=== PATIENT | male | born 1990 | race African-American/Black ===

== ENCOUNTER 2017-10-24 16:31 | Inpatient (IN) | payer OTHER ==
[~2017-10-24] VITALS: Ht 180.3 cm; Wt 99.9 kg
[~2017-10-24 16:31] MED LIST: CEPH500C PO; SULF800T23 PO
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
[2017-10-24 17:00] LABS: BASO % 0.2 %; BASO ABS # 0.02 K/uL (0-0.2); EOS % 2.6 %; EOS ABS # 0.28 K/uL (0-0.5); HEMOGLOBIN 15.1 g/dL (14.0-18.0); IG# 0.03 K/uL (0.00-0.02); LYMPH % 18.5 %; LYMPH ABS # 2.01 K/uL (1.2-3.4); MEAN CELL VOLUME 91.3 fL (80-100); MEAN CORPUSCULAR HEMOGLOBIN 32.8 pg (25-34); MEAN PLATELET VOLUME 9.4 fL (7.4-10.4); NEUT % 67.4 %; NEUT ABS # 7.32 K/uL (1.4-6.5); PLATELET COUNT 196 K/uL (130-400); RED CELL DISTRIBUTION WIDTH CV 13.2 % (11.5-14.5); RED CELL DISTRIBUTION WIDTH SD 44.2 fL (36.4-46.3); WHITE BLOOD COUNT 10.86 K/uL (4.8-10.8)
[2017-10-24] MEDS ORDERED: AMPICILLIN/SULBACTAM SOD INJ 3,000 MG in SODIUM CHLORIDE 0.9% 100ML 100 ML IV ONE (17:00)
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
[2017-10-24 17:16] LABS: CALCIUM 8.2 mg/dl (8.5-10.1); CREATININE 1.04 mg/dl (0.60-1.40); POTASSIUM 3.6 mmol/L (3.5-5.1)
[2017-10-24 17:30] VITALS: O2SAT 96; Ht 180.3 cm; Wt 99.9 kg
[2017-10-24] MEDS ORDERED: ONDANSETRON INJ 2 MG/ML 2 ML VIAL IV PRN (17:45)
[2017-10-24] MEDS ORDERED: HYDR1CAP85 PO (18:15)
[2017-10-24] MEDS ORDERED: PARO10TA3 PO (18:15)
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
[2017-10-24 19:05] VITALS: BP 148/80; PULSE 61; TEMP 37.2; O2SAT 98
[2017-10-24] MEDS: LACTATED RINGER'S 1000ML 1,000 ML IV SCH (19:42)
[2017-10-24 19:44] LABS: INR 1.1 (0.9-1.1)
[2017-10-24] MEDS: ENOXAPARIN 30 MG/0.3 ML SYR SQ SCH (22:01)
[2017-10-24] MEDS: KETOROLAC TROMETHAMINE 30 MG/ML VIAL IV PRN (22:02)
[2017-10-24 23:18] VITALS: BP 121/69; PULSE 59; TEMP 37; O2SAT 99
[2017-10-25] MEDS: AMPICILLIN/SULBACTAM SOD INJ 1,500 MG in SODIUM CHLORIDE 0.9% 100ML 100 ML IV SCH ×4 (00:33→17:50)
[2017-10-25] MEDS ORDERED: MoRPHine SULFATE 4 MG/ML 1 ML CARP\\VIAL IV STA (00:38)
[2017-10-25 06:26] LABS: BASO % 0.2 %; BASO ABS # 0.02 K/uL (0-0.2); EOS % 3.8 %; EOS ABS # 0.32 K/uL (0-0.5); HEMATOCRIT 40.8 % (42-52); IG# 0.03 K/uL (0.00-0.02); LYMPH % 24.4 %; LYMPH ABS # 2.04 K/uL (1.2-3.4); MEAN CELL VOLUME 91.7 fL (80-100); MEAN CORPUSCULAR HEMOGLOBIN 31.5 pg (25-34); MEAN CORPUSCULAR HGB CONC 34.3 g/dl (32-36); MEAN PLATELET VOLUME 9.5 fL (7.4-10.4); MONO % 14.2 %; MONO ABS # 1.19 K/uL (0.11-0.59); NEUT ABS # 4.77 K/uL (1.4-6.5); PLATELET COUNT 199 K/uL (130-400); RED CELL DISTRIBUTION WIDTH CV 13.3 % (11.5-14.5); RED CELL DISTRIBUTION WIDTH SD 44.2 fL (36.4-46.3); WHITE BLOOD COUNT 8.37 K/uL (4.8-10.8)
[2017-10-25 07:06] LABS: BLOOD UREA NITROGEN 16 mg/dl (7-18); CALCIUM 8.1 mg/dl (8.5-10.1); CARBON DIOXIDE 27 mmol/L (21-32); CREATININE 1.12 mg/dl (0.60-1.40); GLUCOSE 86 mg/dl (70-99); SODIUM 139 mmol/L (136-145)
[2017-10-25 07:20] VITALS: BP 131/74; PULSE 62; TEMP 36.8; O2SAT 98
[2017-10-25] MEDS: KETOROLAC TROMETHAMINE 30 MG/ML VIAL IV PRN ×2 (08:12→19:19)
[2017-10-25] MEDS: LACTATED RINGER'S 1000ML 1,000 ML IV SCH (08:16)
[2017-10-25] MEDS: ENOXAPARIN 30 MG/0.3 ML SYR SQ SCH ×2 (11:02→20:46)
--- NOTE | 2017-10-25 12:15 | CONSULTATION REPORT ---
DATE OF CONSULTATION: 10/25/2017 HISTORY OF PRESENT ILLNESS: The patient presents to the hospital, admitted yesterday with a laceration over his MCP joint of his third finger of his right hand. He has got two 1 cm lacerations, appeared to be from striking some type of object. Has some just diffuse generalized puffiness and swelling in the dorsum of his hand. No evidence of fracture is noted. His extensor mechanism and extensor tendon is intact. He is neurovascularly and neurologically intact. He has no signs of volar swelling or volar extension of any type of cellulitis. He has been on intravenous antibiotics and appears to be getting better from yesterday, but at this point, the plan is for continued 24 hours of IV antibiotics pending his response over the next 24 hours, possible MRI scan at this point though he is not in need of anything surgical. We will continue with IV antibiotics. Will follow with you.
[2017-10-25 15:22] VITALS: BP 149/73; PULSE 62; TEMP 37; O2SAT 100
--- NOTE | 2017-10-25 23:39 | Progress Note ---
Subjective Date of Service: Oct 25, 2017. Subjective Pt evaluation today including: conversation w/ patient, physical exam Graeme is a 27 yo male from group home. He states he hit his hand on a screw while lifting weights. He reports his hand continues to be swollen and he has pain today. Patient denies any fever chills, nausea, vomiting. Problem List Medical Problems: (1) Cellulitis Status: Acute (2) Cellulitis and abscess of hand Status: Acute (3) Failure of outpatient treatment Status: Acute Review of Systems Constitutional: No fever Eyes: No worsening of vision ENT: No hearing loss Respiratory: No cough Cardiac: No chest pain Musculoskeletal: + joint pain, + swelling (right hand) Neurologic: No memory loss Psychiatric: No depression symptoms Heme: No abnormal bleeding/bruising Endo: No fatigue Skin: No rash Objective Vital Signs Date Time Temp Pulse Resp B/P (MAP) Pulse Ox O2 Delivery O2 Flow Rate FiO2 10/25/17 16:00 Room Air 10/25/17 15:22 37.0 62 16 149/73 (98) 100 10/25/17 07:20 36.8 62 16 131/74 (93) 98 Physical Exam Comments: General: patient resting comfortably in bed, speech delayed with stutter Skin: abrasion on right hand on third MCP joint with small amount of serosanguinous drainage, granulation tissue present, surrounding redness, warmth and edema with tenderness to palpation of dorsum of hand to wrist. No bullae, no crepitus, no streaking. Sensation intact to light touch. Pulses 2+ . No swelling of wrist. HEENT: NC/AT, PERRL, EOMI, anicteric sclera, conjunctiva without injection, nares patent, moist mucus membranes, no oropharyngeal lesions, neck supple, trachea midline, no thyromegaly, no LAD Heart: +S1/S2, regular, no m/r/g Lungs: equal air entry bilaterally, no rales/rhonchi/wheezes Abdomen: soft, NT/ND, no masses/organomegaly/ascites Extremities: warm, well perfused, no clubbing/cyanosis or edema, 2+ palpable pulses in UE/LE bilaterally Neuro: grossly no deficits Laboratory Results Last 24 Hours Test 10/25/17 06:07 10/25/17 14:26 White Blood Count 8.37 K/uL Red Blood Count 4.45 M/uL Hemoglobin 14.0 g/dL Hematocrit 40.8 % Mean Corpuscular Volume 91.7 fL Mean Corpuscular Hemoglobin 31.5 pg Mean Corpuscular Hemoglobin Concent 34.3 g/dl Platelet Count 199 K/uL Mean Platelet Volume 9.5 fL Neutrophils (%) (Auto) 57.0 % Lymphocytes (%) (Auto) 24.4 % Monocytes (%) (Auto) 14.2 % Eosinophils (%) (Auto) 3.8 % Basophils (%) (Auto) 0.2 % Neutrophils # (Auto) 4.77 K/uL Lymphocytes # (Auto) 2.04 K/uL Monocytes # (Auto) 1.19 K/uL Eosinophils # (Auto) 0.32 K/uL Basophils # (Auto) 0.02 K/uL RDW Standard Deviation 44.2 fL RDW Coefficient of Variation 13.3 % Immature Granulocyte % (Auto) 0.4 % Immature Granulocyte # (Auto) 0.03 K/uL Sodium Level 139 mmol/L Potassium Level 4.0 mmol/L Chloride Level 108 mmol/L Carbon Dioxide Level 27 mmol/L Anion Gap 4.0 mmol/L Blood Urea Nitrogen 16 mg/dl Creatinine 1.12 mg/dl Est Creatinine Clear Calc Drug Dose 119.3 ml/min Estimated GFR () 103.8 Estimated GFR (Non- 89.5 BUN/Creatinine Ratio 14.4 Random Glucose 86 mg/dl Calcium Level 8.1 mg/dl Troponin I < 0.015 ng/ml < 0.015 ng/ml Assessment and Plan 26yo male with no significant past medical or surgical history with abrasion to dorsum of right hand 3 days ago on a weight bench. Patient with progressive pain/redness/edema. Failed outpatient therapy. 1. Cellulitis right hand on 3rd mcp. - progressive pain, swelling, redness over the last three days. Patient received only one day of outpatient oral therapy, cannot definitively be called outpatient treatment failure. However, now with reported fever, WBC from 9.7 to 10.86 over the last day. Patient is afebrile at present, nontoxic in appearance. He is in considerable pain from the hand and has limited ROM. X-ray with no evidence of osseous injury -Admitted to medical floor -Mild improvement today. -Unasyn 1.5gm IV q 6 hours -Tylenol PRN pain -Toradol 30mg IV q 6 hours PRN -Consult with Dr. Smart- Orthopedic Surgery. Appreciate assistance with this case. -If no improvement BY TOMORROW, will obtain an MRI to look for septic arthritis 2. F/E/N - LR at 80mL/hr x 2 liters, monitor electrolytes and replete as needed , regular diet as tolerated 3. Ppx - Lovenox for DVT prophylaxis 4. Code -Full
[2017-10-25 23:55] VITALS: BP 134/76; PULSE 56; TEMP 36.9; O2SAT 99
[2017-10-26] MEDS: AMPICILLIN/SULBACTAM SOD INJ 1,500 MG in SODIUM CHLORIDE 0.9% 100ML 100 ML IV SCH ×4 (00:47→17:27)
[2017-10-26] MEDS: KETOROLAC TROMETHAMINE 30 MG/ML VIAL IV PRN ×3 (01:27→21:44)
[2017-10-26] MEDS: ACETAMINOPHEN 325 MG TAB PO PRN (04:03)
[2017-10-26 06:38] LABS: CALCIUM 7.8 mg/dl (8.5-10.1); CREATININE 1.05 mg/dl (0.60-1.40); POTASSIUM 3.8 mmol/L (3.5-5.1)
[2017-10-26 07:16] VITALS: BP 127/76; PULSE 52; TEMP 36.6; O2SAT 99
--- NOTE | 2017-10-26 08:40 | Orthopedic Progress Note ---
Orthopedic Progress Note Date of Service Oct 26, 2017. Subjective Reports: feeling well Additional Notes: Pt had an gurdeep wrap applied to the hand which he states has helped his discomfort. No new complaints. Feels that the hand in general is better but still has moderate pain in the 3rd MCPJ. Objective N/V intact Hand swelling is down and looking better. Still with swelling over the 3rd MCPJ with moderate pain with palpation and ROM. Most of the pain is in the joint but does translate proximally. Date Time Temp Pulse Resp B/P (MAP) Pulse Ox O2 Delivery O2 Flow Rate FiO2 10/26/17 07:16 36.6 52 16 127/76 (93) 99 10/26/17 00:30 Room Air 10/25/17 23:55 36.9 56 18 134/76 (95) 99 Room Air 10/25/17 16:00 Room Air 10/25/17 15:22 37.0 62 16 149/73 (98) 100 Assessment & Plan Assessment: Cellulitis Right hand s/p right hand injury near the 3rd MCP joint. Plan: Looks better today but still with moderate pain in the joint. MRI ordered to r/o septic joint. Continue IV antibx
[2017-10-26] MEDS: ENOXAPARIN 30 MG/0.3 ML SYR SQ SCH ×2 (09:28→20:03)
[2017-10-26 15:18] VITALS: BP 124/68; PULSE 58; TEMP 36.3; O2SAT 98
[2017-10-26] MEDS ORDERED: GADAVIST IV PRN (21:30)
--- NOTE | 2017-10-26 21:49 | DIAGNOSTIC IMAGING REPORT ---
MRI OF THE RIGHT HAND COMBO CLINICAL HISTORY: Soft tissue infection. Assess the third metacarpophalangeal joint. COMPARISON STUDY: Radiographs of the right hand dated 10/24/2017. TECHNIQUE: MRI of the right hand is performed utilizing various T1 and T2-weighted sequences in the axial, sagittal, and coronal planes. Contrast-enhanced sequences are acquired following the IV administration of 10 cc of Gadavist. FINDINGS: There is minimal marrow edema seen within the third metacarpal head and the base of the first proximal phalanx. There is no corresponding drop in signal on the T1-weighted sequences and this suggests mild osteitis. There is no clear MRI evidence of osteomyelitis. There is a joint effusion at the third metacarpophalangeal joint with mild synovial thickening and enhancement. This suggests septic arthritis. There is soft tissue edema identified around the third metacarpophalangeal joint, greatest dorsally. A tiny cutaneous defect is seen on axial image #22 and likely represents a wound. No organized fluid collection is seen to indicate abscess. No foreign body is clearly seen. The remaining skeletal structures demonstrate normal marrow signal intensity. The visualized flexor and extensor tendons appear intact. IMPRESSION: 1. There is evidence of a wound in the dorsal soft tissues at the level of the third metacarpophalangeal joint with surrounding cellulitis. No organized fluid collection is seen to indicate abscess. 2. Findings are most consistent with septic arthritis involving the third metacarpophalangeal joint. 3. There is evidence of mild osteitis involving the third metacarpal head and the base of the third proximal phalanx. There is no clear evidence of osteomyelitis at this time. Dictated: 10/26/2017 9:26 PM Transcribed: 10/26/2017 9:48 PM Eric Electronically signed by: Paulie Morrison M.D. 10/26/2017 9:49 PM Dictated Date/Time: 10/26/2017 9:26 PM
[2017-10-26 23:33] VITALS: BP 148/76; PULSE 77; TEMP 37.4; O2SAT 94
--- NOTE | 2017-10-26 23:42 | Progress Note ---
Subjective Date of Service: Oct 26, 2017. Subjective Pt evaluation today including: conversation w/ patient, physical exam Patient reports improvement today. He states he has less pain and less swelling. Patient denies any fever, chills. Problem List Medical Problems: (1) Cellulitis Status: Acute (2) Cellulitis and abscess of hand Status: Acute (3) Failure of outpatient treatment Status: Acute Review of Systems Constitutional: No fever, No chills Eyes: No worsening of vision Respiratory: No cough Cardiac: No chest pain Abdomen: No pain Musculoskeletal: + joint pain (right hand) Neurologic: No memory loss Psychiatric: No depression symptoms Heme: No abnormal bleeding/bruising Endo: No fatigue Skin: No rash All Other Systems: Reviewed and Negative Objective Vital Signs Date Time Temp Pulse Resp B/P (MAP) Pulse Ox O2 Delivery O2 Flow Rate FiO2 10/26/17 23:33 37.4 77 18 148/76 (100) 94 Room Air 10/26/17 16:00 Room Air 10/26/17 15:18 36.3 58 18 124/68 (86) 98 Room Air 10/26/17 08:00 Room Air 10/26/17 07:16 36.6 52 16 127/76 (93) 99 10/26/17 00:30 Room Air 10/25/17 23:55 36.9 56 18 134/76 (95) 99 Room Air Physical Exam Comments: General: patient resting comfortably in bed, speech delayed with stutter Skin: abrasion on right hand on third MCP joint with small amount of serosanguinous drainage, granulation tissue present, decreased redness, warmth and edema with decreased tenderness to palpation of dorsum of hand to wrist. No bullae, no crepitus, no streaking. Sensation intact to light touch. Pulses 2+. No swelling of wrist. HEENT: NC/AT, PERRL, EOMI, anicteric sclera, conjunctiva without injection, nares patent, moist mucus membranes, no oropharyngeal lesions, neck supple, trachea midline, no thyromegaly, no LAD Heart: +S1/S2, regular, no m/r/g Lungs: equal air entry bilaterally, no rales/rhonchi/wheezes Abdomen: soft, NT/ND, no masses/organomegaly/ascites Extremities: warm, well perfused, no clubbing/cyanosis or edema, 2+ palpable pulses in UE/LE bilaterally Neuro: grossly no deficits Laboratory Results Last 24 Hours Test 10/26/17 05:49 Sodium Level 139 mmol/L Potassium Level 3.8 mmol/L Chloride Level 108 mmol/L Carbon Dioxide Level 27 mmol/L Anion Gap 4.0 mmol/L Blood Urea Nitrogen 14 mg/dl Creatinine 1.05 mg/dl Est Creatinine Clear Calc Drug Dose 126.1 ml/min Estimated GFR () 111.4 Estimated GFR (Non- 96.1 BUN/Creatinine Ratio 12.9 Random Glucose 90 mg/dl Calcium Level 7.8 mg/dl Assessment and Plan 26yo male with no significant past medical or surgical history with abrasion to dorsum of right hand 3 days ago on a weight bench. Patient with progressive pain/redness/edema. Failed outpatient therapy. 1. Cellulitis right hand on 3rd mcp. - progressive pain, swelling, redness over the last three days. Patient received only one day of outpatient oral therapy, cannot definitively be called outpatient treatment failure. Patient is afebrile throughout stay, nontoxic in appearance. Pain has improved. X-ray with no evidence of osseous injury -Unasyn 1.5gm IV q 6 hours -Tylenol PRN pain -Toradol 30mg IV q 6 hours PRN -Consult with Dr. Smart- Orthopedic Surgery. Appreciate assistance with this case. -Awaiting MRI of hand results. will monitor. If positive, will need 2. F/E/N - LR at 80mL/hr x 2 liters, monitor electrolytes and replete as needed , regular diet as tolerated 3. Ppx - Lovenox for DVT prophylaxis 4. Code -Full
[2017-10-27] VITALS (8 sets, daily range): BP systolic 93–145; BP diastolic 51–80; PULSE 59–70; TEMP 36.3–37.3; O2SAT 92–100
[2017-10-27] MEDS: ACETAMINOPHEN 325 MG TAB PO PRN ×2 (00:06→05:47)
[2017-10-27] MEDS: AMPICILLIN/SULBACTAM SOD INJ 1,500 MG in SODIUM CHLORIDE 0.9% 100ML 100 ML IV SCH ×4 (00:06→19:36)
[2017-10-27] MEDS: KETOROLAC TROMETHAMINE 30 MG/ML VIAL IV PRN ×2 (03:15→10:05)
[2017-10-27 06:25] LABS: HEMATOCRIT 37.3 % (42-52); HEMOGLOBIN 12.8 g/dL (14.0-18.0); MEAN CELL VOLUME 91.6 fL (80-100); MEAN CORPUSCULAR HEMOGLOBIN 31.4 pg (25-34); MEAN CORPUSCULAR HGB CONC 34.3 g/dl (32-36); PLATELET COUNT 190 K/uL (130-400); RED CELL DISTRIBUTION WIDTH SD 43.8 fL (36.4-46.3); WHITE BLOOD COUNT 6.56 K/uL (4.8-10.8)
[2017-10-27 06:50] LABS: CALCIUM 8.2 mg/dl (8.5-10.1); CREATININE 0.99 mg/dl (0.60-1.40); POTASSIUM 3.8 mmol/L (3.5-5.1)
--- NOTE | 2017-10-27 08:25 | Progress Note ---
Subjective Date of Service: Oct 27, 2017. Subjective Patient seen prior to surgery. Patient reports no new symptoms. Patient reports hand swelling has decreased. Problem List Medical Problems: (1) Cellulitis Status: Acute (2) Cellulitis and abscess of hand Status: Acute (3) Failure of outpatient treatment Status: Acute Review of Systems Constitutional: No fever, No chills Eyes: No worsening of vision Respiratory: No cough Cardiac: No chest pain Abdomen: No pain Musculoskeletal: + joint pain (right hand) Neurologic: No memory loss Psychiatric: No depression symptoms Heme: No abnormal bleeding/bruising Endo: No fatigue Skin: No rash All Other Systems: Reviewed and Negative Objective Vital Signs Date Time Temp Pulse Resp B/P (MAP) Pulse Ox O2 Delivery O2 Flow Rate FiO2 10/27/17 07:10 36.8 61 18 93/51 (65) 100 Room Air 10/27/17 00:30 Room Air 10/26/17 23:33 37.4 77 18 148/76 (100) 94 Room Air 10/26/17 16:00 Room Air 10/26/17 15:18 36.3 58 18 124/68 (86) 98 Room Air Physical Exam General Appearance: WD/WN, no apparent distress Eyes: normal inspection ENT: normal ENT inspection Neck: supple, no adenopathy Respiratory/Chest: chest non-tender, lungs clear, normal breath sounds, no respiratory distress Cardiovascular: regular rate, rhythm, no edema Abdomen: normal bowel sounds, non tender, soft Extremities: normal range of motion Neurologic/Psychiatric: alert, oriented x 3 Skin: + pertinent finding (abrasion on right hand on third MCP joint with small amount of serosanguinous drainage, granulation tissue present, decreased redness, warmth and edema with decreased tenderness to palpation of dorsum of hand to wrist. No bullae, no crepitus, no streaking. Sensation intact to light touch. Pulses 2+. No swelling of wrist.) Lymphatic: no adenopathy Laboratory Results Last 24 Hours Test 10/27/17 06:09 White Blood Count 6.56 K/uL Red Blood Count 4.07 M/uL Hemoglobin 12.8 g/dL Hematocrit 37.3 % Mean Corpuscular Volume 91.6 fL Mean Corpuscular Hemoglobin 31.4 pg Mean Corpuscular Hemoglobin Concent 34.3 g/dl RDW Standard Deviation 43.8 fL RDW Coefficient of Variation 13.0 % Platelet Count 190 K/uL Mean Platelet Volume 9.0 fL Sodium Level 140 mmol/L Potassium Level 3.8 mmol/L Chloride Level 109 mmol/L Carbon Dioxide Level 25 mmol/L Anion Gap 7.0 mmol/L Blood Urea Nitrogen 15 mg/dl Creatinine 0.99 mg/dl Est Creatinine Clear Calc Drug Dose 133.7 ml/min Estimated GFR () 119.6 Estimated GFR (Non- 103.2 BUN/Creatinine Ratio 15.1 Random Glucose 87 mg/dl Calcium Level 8.2 mg/dl Assessment and Plan 26yo male with no significant past medical or surgical history with abrasion to dorsum of right hand 3 days ago on a weight bench. Patient with progressive pain/redness/edema. Failed outpatient therapy. 1. Cellulitis right hand on 3rd mcp. - progressive pain, swelling, redness over the last three days. Patient received only one day of outpatient oral therapy, cannot definitively be called outpatient treatment failure. Patient is afebrile throughout stay, nontoxic in appearance. Pain has improved. X-ray with no evidence of osseous injury -Unasyn 1.5gm IV q 6 hours -Added flagyl for possible human bite infection. -Tylenol PRN pain -Toradol 30mg IV q 6 hours PRN -Consult with Dr. Smart- Orthopedic Surgery. Appreciate assistance with this case. -MRI was positive for septic arthritis. Patient will have surgery. Added Flagyl for possible human bite. 2. F/E/N - LR at 80mL/hr x 2 liters, monitor electrolytes and replete as needed , regular diet as tolerated 3. Ppx - Lovenox for DVT prophylaxis 4. Code -Full
[2017-10-27] MEDS: ENOXAPARIN 30 MG/0.3 ML SYR SQ SCH (08:37)
[2017-10-27] MEDS: METRONIDAZOLE / NSS 500 MG in PREMIXED NSS 100 ML IV SCH ×3 (09:13→20:14)
--- NOTE | 2017-10-27 11:55 | History & Physical Bridge Note ---
H&P Re-Evaluation Bridge Note: I have examined the patient, reviewed the History & Physical and in the interval since the performance of the History & Physical I have noted the following changes of clinical significance: No changes noted
[2017-10-27] MEDS ORDERED: BACITRACIN 50000 UNIT VIAL ONE (15:14)
[2017-10-27] MEDS ORDERED: PROPOFOL IV EMULSION 10 MG/ML 20 ML VIAL ONE (15:24)
[2017-10-27] MEDS ORDERED: MIDAZOLAM HCL 1 MG/ML 2ML VIAL ONE (15:24)
[2017-10-27] MEDS ORDERED: ONDANSETRON INJ 2 MG/ML 2 ML VIAL ONE (15:24)
[2017-10-27] MEDS ORDERED: LIDOCAINE HCL 2% 2 ML VIAL (20MG/ML) ONE (15:24)
[2017-10-27] MEDS ORDERED: DEXAMETHASONE SOD INJ 4 MG/ML VIAL ONE (15:24)
[2017-10-27] MEDS ORDERED: FENTANYL CITRATE INJ 50 MCG/1 ML 2 ML VIAL ONE ×3 (15:25→17:27)
[2017-10-27] MEDS ORDERED: OXYCODONE HCL IR 5 MG TAB (IMMEDIATE RELEASE) PO PRN (18:00)
[2017-10-27] MEDS ORDERED: MoRPHine SULFATE 4 MG/ML 1 ML CARP\\VIAL IV PRN (18:00)
--- NOTE | 2017-10-27 18:17 | [facility] Post Operative Brief Note ---
Immediate Operative Summary Operative Date Oct 27, 2017. Pre-Operative Diagnosis tenosynovitis, 3rd extensor, right hand septic arthritis, 3rd MCP, right hand synovitis, 3rd MCP, right hand Post-Operative Diagnosis tenosynovitis, 3rd extensor, right hand septic arthritis, 34rd MCP, right hand synovitis, 3rd MCP, right hand Procedure(s) Performed 1. tenosynovectomy 3rd extensor tendon right hand; 2. irrigation and debridement of septic arthritis 3rd MCP joint, right hand; 3. synovectomy or 3rd MCP right hand right hand Surgeon Dr. Isma Smart Machine Sewer Surgeon(s) None Estimated Blood Loss 3ml Findings Consistent with Post-Op Diagnosis Specimens #1. right 3rd MCP joint culture and sensitivity, aerobic and anaerobic with gram stain, sent routine Drains iodoform gauze x 2 Anesthesia Type General Complication(s) none Disposition Accompanied Pt To Recover: no Disposition: Recovery Room / PACU
[2017-10-27] MEDS ORDERED: ACETAMINOPHEN 1000 MG/100 ML IV IV ONE ×2 (18:25→18:30)
[2017-10-27] MEDS ORDERED: ATROPINE SULFATE 0.1 MG/ML 5ML SYR IV PRN (18:30)
[2017-10-27] MEDS ORDERED: FLUMAZENIL 0.1 MG/1 ML 10 ML VIAL IV PRN (18:30)
[2017-10-27] MEDS ORDERED: PROMETHAZINE HCL INJ 12.5 MG in SODIUM CHLORIDE 0.9% 50ML 50 ML IV PRN (18:30)
[2017-10-27] MEDS ORDERED: NALOXONE HCL 0.4 MG/1 ML VIAL/CARP IV PRN ×2 (18:30→19:45)
[2017-10-27] MEDS ORDERED: EpHEDrine SULFATE INJ 50 MG/ML AMP IV PRN (18:30)
[2017-10-27] MEDS ORDERED: ONDANSETRON INJ 2 MG/ML 2 ML VIAL IV PRN (18:30)
[2017-10-27] MEDS ORDERED: LABETALOL HCL IV 5 MG/ML 20ML IV PRN (18:30)
[2017-10-27] MEDS: HYDROmorphone INJ 0.5 MG/0.5 ML SYR IV PRN ×12 (18:42→19:38)
--- NOTE | 2017-10-27 19:23 | Anesthesiology Progress Note ---
Anesthesia Post Op Note Date & Time Oct 27, 2017 at 19:23 Vital Signs Pain Intensity: 8.0 Vital Signs Past 12 Hours Date Time Temp Pulse Resp B/P (MAP) Pulse Ox O2 Delivery O2 Flow Rate FiO2 10/27/17 19:11 151/70 18 19:09 73 17 96 10/27/17 19:09 78 17 10/27/17 19:06 143/71 10/27/17 19:04 78 13 10/27/17 19:04 77 13 93 10/27/17 19:03 78 16 10/27/17 19:03 80 16 95 10/27/17 19:01 144/70 10/27/17 18:58 78 18 95 10/27/17 18:58 79 18 10/27/17 18:57 80 17 10/27/17 18:57 81 17 95 10/27/17 18:56 146/74 10/27/17 18:52 79 16 10/27/17 18:52 79 16 97 10/27/17 18:51 142/75 10/27/17 18:47 85 20 96 10/27/17 18:47 87 20 10/27/17 18:46 83 17 146/71 96 18 18:46 82 17 10/27/17 18:41 94 18 10/27/17 18:41 93 18 147/76 96 10/27/17 18:36 82 17 143/72 96 10/27/17 18:36 83 17 10/27/17 18:31 87 17 138/71 95 18 18:31 86 17 18 18:26 92 21 10/27/17 18:26 92 21 141/66 95 18 18:21 88 21 137/68 97 18 18:21 89 21 18 18:21 38.1 21 137/68 97 Room Air 10/27/17 08:00 Room Air Notes Mental Status: alert / awake / arousable, participated in evaluation Pt Amnestic to Procedure: Yes Nausea / Vomiting: adequately controlled Pain: adequately controlled Airway Patency, RR, SpO2: stable & adequate BP & HR: stable & adequate Hydration State: stable & adequate Anesthetic Complications: no major complications apparent
[2017-10-27] MEDS ORDERED: NURSING VERBAL MED ORDER ONE (19:25)
[2017-10-27] MEDS ORDERED: HYDROmorphone HCL 0.5MG/ML 50 ML CASSETTE ONE (19:26)
[2017-10-27] MEDS ORDERED: HYDROmorphone INJ 0.5 MG/0.5 ML SYR IV PRN (19:30)
[2017-10-27] MEDS: HYDROmorphone HCL 0.5MG/ML 50 ML CASSETTE IV PRN (19:41)
[2017-10-27] MEDS: SODIUM CHLORIDE 0.9% 1000ML 1,000 ML IV SCH (20:15)
[2017-10-28] MEDS: AMPICILLIN/SULBACTAM SOD INJ 1,500 MG in SODIUM CHLORIDE 0.9% 100ML 100 ML IV SCH ×4 (00:08→17:31)
[2017-10-28] MEDS: METRONIDAZOLE / NSS 500 MG in PREMIXED NSS 100 ML IV SCH ×3 (01:43→18:19)
[2017-10-28 07:39] VITALS: BP 125/69; PULSE 67; TEMP 37.2; O2SAT 96
--- NOTE | 2017-10-28 08:15 | Orthopedic Progress Note ---
Orthopedic Progress Note Date of Service Oct 28, 2017. Subjective Post OP Day: 1 (POD #1 s/p I&D right hand) Reports: feeling well, pain controlled w PO medications, Denies: complaints, chest pain, SOB, nausea / vomiting, light headedness, calf pain Additional Notes: pain in right hand, about the same as yesterday, no worsening. denies fever/ chills Objective dressing C/D/I, A&O x3 mild bloody drainage onto dressing, dressing was removed today and packing pulled from proximal and distal aspect. no tenderness present in forearm or wrist. tenderness present over dorsum of hand, no increasing erythema. Date Time Temp Pulse Resp B/P (MAP) Pulse Ox O2 Delivery O2 Flow Rate FiO2 10/28/17 07:39 37.2 67 20 125/69 (87) 96 10/28/17 00:10 Room Air 10/27/17 23:35 36.7 62 18 108/65 (79) 96 Room Air 10/27/17 22:39 36.6 59 18 119/71 (87) 98 Room Air 10/27/17 21:38 36.3 65 18 125/78 (94) 95 Room Air 10/27/17 21:06 37.0 69 18 129/69 (89) 92 Room Air 10/27/17 20:38 36.9 63 18 145/80 (101) 94 Room Air 10/27/17 20:24 37.1 66 18 131/73 (92) 92 Room Air 10/27/17 20:15 37.3 70 16 145/75 (98) 94 Room Air 10/27/17 20:15 94 Room Air 10/27/17 19:53 84 12 10/27/17 19:53 87 12 97 10/27/17 19:51 141/62 10/27/17 19:48 63 11 10/27/17 19:48 63 11 96 10/27/17 19:46 147/78 10/27/17 19:46 37.9 93 Room Air 10/27/17 19:43 73 13 10/27/17 19:43 75 13 97 10/27/17 19:42 64 13 94 10/27/17 19:42 63 13 10/27/17 19:41 133/63 10/27/17 19:37 66 14 7/6/18 19:37 66 14 95 7/6/18 19:36 138/65 7/6/18 19:32 67 13 94 7/6/18 19:32 68 13 7/6/18 19:31 144/60 7/6/18 19:27 69 15 95 7/6/18 19:27 69 15 7/6/18 19:26 145/65 7/6/18 19:22 68 13 7/6/18 19:22 68 13 94 7/6/18 19:21 134/65 7/6/18 19:17 70 14 7/6/18 19:17 73 14 95 7/6/18 19:16 140/70 7/6/18 19:12 72 15 7/6/18 19:12 71 15 94 7/6/18 19:11 151/70 7/6/18 19:09 73 17 96 7/6/18 19:09 78 17 7/6/18 19:06 143/71 7/6/18 19:04 78 13 7/6/18 19:04 77 13 93 7/6/18 19:03 78 16 7/6/18 19:03 80 16 95 7/6/18 19:01 144/70 7/6/18 18:58 78 18 95 7/6/18 18:58 79 18 7/6/18 18:57 80 17 7/6/18 18:57 81 17 95 7/6/18 18:56 146/74 7/6/18 18:52 79 16 7/6/18 18:52 79 16 97 7/6/18 18:51 142/75 7/6/18 18:47 85 20 96 7/6/18 18:47 87 20 7/6/18 18:46 83 17 146/71 96 7/6/18 18:46 82 17 7/6/18 18:41 94 18 7/6/18 18:41 93 18 147/76 96 7/6/18 18:36 82 17 143/72 96 7/6/18 18:36 83 17 7/6/18 18:31 87 17 138/71 95 7/6/18 18:31 86 17 7/6/18 18:26 92 21 7/6/18 18:26 92 21 141/66 95 7/6/18 18:21 88 21 137/68 97 7/6/18 18:21 89 21 10/27/17 18:21 38.1 21 137/68 97 Room Air 10/27/17 08:00 Room Air Assessment & Plan Assessment: POD #1 s/p tenosynovectomy 3rd extensor tendon right hand, I&D of septic arthritis 3rd MCP joint, right hand , synovectomy or 3rd MCP right hand Plan: dressing changed and packing removed today, cont to ice/elevate above heart level, limit use of right hand. cultures showing few WBCs, rare gram positive cocci. will cont IV Unasyn, follow along C&S. dressing change again tomorrow am.
[2017-10-28 15:31] VITALS: BP 110/64; PULSE 63; TEMP 36.9; O2SAT 97
[2017-10-28] MEDS: SODIUM CHLORIDE 0.9% 1000ML 1,000 ML IV SCH (20:14)
--- NOTE | 2017-10-28 22:28 | Progress Note ---
Subjective Date of Service: Oct 28, 2017. Subjective Pt evaluation today including: conversation w/ patient Patient reports pain in right hand. No change from yesterday. Problem List Medical Problems: (1) Cellulitis Status: Acute (2) Cellulitis and abscess of hand Status: Acute (3) Failure of outpatient treatment Status: Acute Review of Systems Constitutional: No fever, No chills Eyes: No worsening of vision Respiratory: No cough Cardiac: No chest pain Abdomen: No pain Musculoskeletal: + joint pain (right hand) Neurologic: No memory loss Psychiatric: No depression symptoms Heme: No abnormal bleeding/bruising Endo: No fatigue Skin: No rash All Other Systems: Reviewed and Negative Objective Vital Signs Date Time Temp Pulse Resp B/P (MAP) Pulse Ox O2 Delivery O2 Flow Rate FiO2 10/28/17 19:40 Room Air 10/28/17 17:00 Room Air 10/28/17 15:31 36.9 63 18 110/64 (79) 97 Room Air 10/28/17 08:45 Room Air 10/28/17 07:39 37.2 67 20 125/69 (87) 96 10/28/17 00:10 Room Air 10/27/17 23:35 36.7 62 18 108/65 (79) 96 Room Air 10/27/17 22:39 36.6 59 18 119/71 (87) 98 Room Air Physical Exam Comments: General Appearance: WD/WN, no apparent distress Eyes: normal inspection ENT: normal ENT inspection Neck: supple, no adenopathy Respiratory/Chest: chest non-tender, lungs clear, normal breath sounds, no respiratory distress Cardiovascular: regular rate, rhythm, no edema Abdomen: normal bowel sounds, non tender, soft Extremities: normal range of motion Neurologic/Psychiatric: alert, oriented x 3 Skin: + pertinent finding (right hand has dry dressing) Lymphatic: no adenopathy Assessment and Plan 26yo male with no significant past medical or surgical history with abrasion to dorsum of right hand 3 days ago on a weight bench. Patient with progressive pain/redness/edema. Failed outpatient therapy. 1. Cellulitis right hand on 3rd mcp. S/P tenosynovectomy 3rd extensor tendon right hand; irrigation and debridement of septic arthritis 3rd MCP joint, right hand; synovectomy or 3rd MCP right hand Patient received only one day of outpatient oral therapy, cannot definitively be called outpatient treatment failure. Patient is afebrile throughout stay, nontoxic in appearance. Pain has improved. X-ray with no evidence of osseous injury -Unasyn 1.5gm IV q 6 hours -Added flagyl for possible human bite infection. -Tylenol PRN pain -Toradol 30mg IV q 6 hours PRN -Consult with Dr. Smart- Orthopedic Surgery. Appreciate assistance with this case. -MRI was positive for septic arthritis. -will likely require 2 weeks of iV antibiotics. awaiting cultures from surgery. 2. F/E/N - LR at 80mL/hr x 2 liters, monitor electrolytes and replete as needed , regular diet as tolerated 3. Ppx - Lovenox for DVT prophylaxis 4. Code -Full
[2017-10-28 22:50] VITALS: BP 120/69; PULSE 62; TEMP 36.8; O2SAT 97
[2017-10-29] VITALS: O2SAT 97
[2017-10-29] MEDS: AMPICILLIN/SULBACTAM SOD INJ 1,500 MG in SODIUM CHLORIDE 0.9% 100ML 100 ML IV SCH ×5 (00:18→23:57)
[2017-10-29] MEDS: METRONIDAZOLE / NSS 500 MG in PREMIXED NSS 100 ML IV SCH ×3 (02:26→18:18)
--- NOTE | 2017-10-29 07:01 | Orthopedic Progress Note ---
Orthopedic Progress Note Date of Service Oct 29, 2017. Subjective Post OP Day: 2 Reports: feeling well, pain controlled w PO medications, using UNDERLAY STITCHER, Denies: complaints, chest pain, SOB, nausea / vomiting, light headedness, calf pain Objective N/V intact, incision C/D/I, A&O x3 all packing has been removed, tender over dorsum of hand along 3rd metacarpal and MCP joint, no tenderness present at wrist joint, no erythema noted at the wrist as well as no streaking noted. forearm soft and non tender. sensation intact throughout hand and all digits. radial pulse +2, strength 5/5 all digits , gentle PROM of 3rd digit no pain, some pain with active ROM Date Time Temp Pulse Resp B/P (MAP) Pulse Ox O2 Delivery O2 Flow Rate FiO2 10/29/17 00:00 97 Room Air 10/28/17 22:50 36.8 62 18 120/69 (86) 97 Room Air 10/28/17 19:40 Room Air 10/28/17 17:00 Room Air 10/28/17 15:31 36.9 63 18 110/64 (79) 97 Room Air 10/28/17 08:45 Room Air 10/28/17 07:39 37.2 67 20 125/69 (87) 96 Assessment & Plan Assessment: POD #2 s/p tenosynovectomy 3rd extensor tendon right hand, I&D of septic arthritis 3rd MCP joint, right hand , synovectomy or 3rd MCP right hand Plan: Dressing changed again today and all packing has been removed, We will cont to ice/elevate above heart level, limit use of right hand. cultures showing few WBCs/Gram positive cocci, awaiting sensitivity, will cont IV Unasyn, follow along C&S. dressing change again tomorrow am. no need for further surgical intervention at this time
[2017-10-29 07:12] VITALS: BP 105/63; PULSE 54; TEMP 36.8; O2SAT 98
[2017-10-29 08:00] VITALS: O2SAT 97
[2017-10-29 14:52] VITALS: BP 119/69; PULSE 71; TEMP 36.8; O2SAT 95
[2017-10-29] MEDS: SODIUM CHLORIDE 0.9% 1000ML 1,000 ML IV SCH (19:54)
[2017-10-29 23:31] VITALS: BP 150/83; PULSE 57; TEMP 36.7; O2SAT 99
--- NOTE | 2017-10-29 23:31 | Progress Note ---
Subjective Date of Service: Oct 29, 2017. Subjective Patient reports mild improvement with pain. Problem List Medical Problems: (1) Cellulitis Status: Acute (2) Cellulitis and abscess of hand Status: Acute (3) Failure of outpatient treatment Status: Acute Review of Systems Constitutional: No fever, No chills Eyes: No worsening of vision Respiratory: No cough Cardiac: No chest pain Abdomen: No pain Musculoskeletal: + joint pain (right hand) Neurologic: No memory loss Psychiatric: No depression symptoms Heme: No abnormal bleeding/bruising Endo: No fatigue Skin: No rash All Other Systems: Reviewed and Negative Objective Vital Signs Date Time Temp Pulse Resp B/P (MAP) Pulse Ox O2 Delivery O2 Flow Rate FiO2 10/29/17 16:00 Room Air 10/29/17 14:52 36.8 71 18 119/69 (86) 95 Room Air 10/29/17 08:00 97 Room Air 10/29/17 07:12 36.8 54 18 105/63 (77) 98 Room Air 10/29/17 00:00 97 Room Air Physical Exam Comments: General Appearance: WD/WN, no apparent distress Eyes: normal inspection ENT: normal ENT inspection Neck: supple, no adenopathy Respiratory/Chest: chest non-tender, lungs clear, normal breath sounds, no respiratory distress Cardiovascular: regular rate, rhythm, no edema Abdomen: normal bowel sounds, non tender, soft Extremities: normal range of motion Neurologic/Psychiatric: alert, oriented x 3 Skin: + pertinent finding (right hand has dressing) Lymphatic: no adenopathy Assessment and Plan 1. Cellulitis right hand on 3rd mcp. S/P tenosynovectomy 3rd extensor tendon right hand; irrigation and debridement of septic arthritis 3rd MCP joint, right hand; synovectomy or 3rd MCP right hand Patient received only one day of outpatient oral therapy, cannot definitively be called outpatient treatment failure. Patient is afebrile throughout stay, nontoxic in appearance. Pain has improved. X-ray with no evidence of osseous injury -Unasyn 1.5gm IV q 6 hours -Added flagyl for possible human bite infection. -Tylenol PRN pain -Toradol 30mg IV q 6 hours PRN -Consult with Dr. Smart- Orthopedic Surgery. Appreciate assistance with this case. -MRI was positive for septic arthritis. -will likely require 2 weeks of iV antibiotics. -cultures final: coag: neg staph. 2. F/E/N -, regular diet as tolerated 3. Ppx - Lovenox for DVT prophylaxis 4. Code -Full Patient will likely require 2 weeks of IV antibiotics.
[2017-10-30] VITALS: O2SAT 97
[2017-10-30] MEDS: METRONIDAZOLE / NSS 500 MG in PREMIXED NSS 100 ML IV SCH ×2 (02:21→09:35)
[2017-10-30] MEDS: HYDROmorphone HCL 0.5MG/ML 50 ML CASSETTE IV PRN ×2 (05:22→15:05)
[2017-10-30] MEDS: AMPICILLIN/SULBACTAM SOD INJ 1,500 MG in SODIUM CHLORIDE 0.9% 100ML 100 ML IV SCH ×2 (06:06→11:33)
[2017-10-30 07:25] VITALS: BP 130/87; PULSE 74; TEMP 36.5; O2SAT 99
[2017-10-30 07:57] LABS: HEMATOCRIT 39.8 % (42-52); HEMOGLOBIN 13.7 g/dL (14.0-18.0); MEAN CELL VOLUME 90.9 fL (80-100); MEAN CORPUSCULAR HEMOGLOBIN 31.3 pg (25-34); MEAN CORPUSCULAR HGB CONC 34.4 g/dl (32-36); MEAN PLATELET VOLUME 8.8 fL (7.4-10.4); PLATELET COUNT 227 K/uL (130-400); RED CELL DISTRIBUTION WIDTH CV 12.8 % (11.5-14.5); RED CELL DISTRIBUTION WIDTH SD 42.8 fL (36.4-46.3)
[2017-10-30 08:25] LABS: CREATININE 0.99 mg/dl (0.60-1.40)
--- NOTE | 2017-10-30 08:48 | Orthopedic Progress Note ---
Orthopedic Progress Note Date of Service Oct 30, 2017. Subjective Post OP Day: 3 Reports: feeling well, pain controlled w PO medications (States the pain is doing much better today.) Objective N/V intact, capillary refill less than 2 sec., dressing C/D/I, incision C/D/I, A &O x3 Right hand: well approximated incision. No erythema. Mild swelling. No drainage. Date Time Temp Pulse Resp B/P (MAP) Pulse Ox O2 Delivery O2 Flow Rate FiO2 10/30/17 07:25 36.5 74 20 130/87 (101) 99 Room Air 10/30/17 00:00 97 Room Air 10/29/17 23:31 36.7 57 20 150/83 (105) 99 Room Air 10/29/17 16:00 Room Air 10/29/17 14:52 36.8 71 18 119/69 (86) 95 Room Air Laboratory Results 24 Hours: Test 10/30/17 07:44 Hematocrit 39.8 % Hemoglobin 13.7 g/dL Assessment & Plan Assessment: POD #3 s/p tenosynovectomy 3rd extensor tendon right hand, I&D of septic arthritis 3rd MCP joint, right hand , synovectomy or 3rd MCP right hand Plan: Dressing changed again today. Recommend 3 weeks of IV antibiotics. Will sign off on at this time and follow up with the patient in 10-14 days for suture removal. Daily dressing changes at [facility]. Seen and examined. Agree with above. Manjit Smart DO
--- NOTE | 2017-10-30 08:49 | Consultant Recommendations ---
Screen Vent Binder Recommendations Date of Service Oct 30, 2017. Screen Vent Binder Recommendations ACTIVITY RECOMMENDATIONS: * Avoid lifting anything heavier than a medium water glass until your first post operative visit. SPECIAL CARE INSTRUCTIONS: * Your bandage should be left in place each day until the dressing change the following day. * Some drainage onto the dressing may occur. This is normal. * If the bandage feels excessively tight, you may loosen the elastic bandage. Then call the physician's office for further instructions. * If possible, keep your hand elevated above the level of your heart for the first 2 post operative days. You may use a sling if necessary. * You should move your fingers regularly (50-100 motions per hour) unless otherwise instructed. * IV antibiotics for 3 weeks. SPECIAL PRECAUTIONS: * If you notice increased drainage, fever over 101 degrees F. or severe, unremitting pain, call your physician/office at . * You may have been prescribed pain medication. If you experience nausea and/or skin rash, discontinue this medication and contact our office for an alternative medication. FOLLOW UP VISIT: If appointment is not already scheduled: Please call [facility] to make a follow-up appointment for 10-14 days after your surgery at .
[2017-10-30] MEDS ORDERED: RXC5 PO (12:45)
[2017-10-30] MEDS ORDERED: CEFT1INJ57 IV (12:45)
--- NOTE | 2017-10-30 12:50 | Discharge Instructions ---
Discharge Instructions Date of Service Oct 30, 2017. Admission Reason for Admission: Cellulitis, Failure Of Outpatient Treatment Discharge Discharge Diagnosis / Problem: Cellulitis, Septic arthritis of 3rd MCP joint right hand Discharge Goals Goal(s): Improve function, Improve disease control Activity Recommendations Activity Limitations: per Instructions/Follow-up section . Instructions / Follow-Up Instructions / Follow-Up Medications: - ROCEPHIN: 16 more days, 2gm IV daily, next dose due tomorrow - OXYCODONE: take as needed for pain with hand - Cellulitis and septic arthritis of 3rd MCP joint right hand S/P tenosynovectomy 3rd extensor tendon right hand; irrigation and debridement of septic arthritis 3rd MCP joint, right hand; synovectomy or 3rd MCP right hand culture grew Coag Negative Staph, no sensitivities treated with Unasyn while admitted, responding well change to Rocephin for ease of dosing on discharge needs 16 more days of antibiotics which will be 3 weeks total follow up with [facility], see their instructions below Current Hospital Diet Patient's current hospital diet: Regular Diet Discharge Diet Recommended Diet: Regular Diet Procedures Procedures Performed: 1. tenosynovectomy 3rd extensor tendon right hand; 2. irrigation and debridement of septic arthritis 3rd MCP joint, right hand; 3. synovectomy or 3rd MCP right hand right hand Pending Studies Studies pending at discharge: no Medical Emergencies . Who to Call and When: Medical Emergencies: If at any time you feel your situation is an emergency, please call 911 immediately. . Non-Emergent Contact Non-Emergency issues call your: Primary Care Provider, Surgeon Call Non-Emergent contact if: you have a fever, your pain is not controlled, your pain is worsening, wound has increased drainage, wound has increased redness, wound has increased pain, you have any medication questions . . "Provider Documentation" section prepared by Marcel Persaud. . Sourcing Coordinator Recommendations Sourcing Coordinator Recommendations: ACTIVITY RECOMMENDATIONS: * Avoid lifting anything heavier than a medium water glass until your first post operative visit. SPECIAL CARE INSTRUCTIONS: * Your bandage should be left in place each day until the dressing change the following day. * Some drainage onto the dressing may occur. This is normal. * If the bandage feels excessively tight, you may loosen the elastic bandage. Then call the physician's office for further instructions. * If possible, keep your hand elevated above the level of your heart for the first 2 post operative days. You may use a sling if necessary. * You should move your fingers regularly (50-100 motions per hour) unless otherwise instructed. * IV antibiotics for 3 weeks. SPECIAL PRECAUTIONS: * If you notice increased drainage, fever over 101 degrees F. or severe, unremitting pain, call your physician/office at . * You may have been prescribed pain medication. If you experience nausea and/or skin rash, discontinue this medication and contact our office for an alternative medication. FOLLOW UP VISIT: If appointment is not already scheduled: Please call [facility] [place] to make a follow-up appointment for 10-14 days after your surgery at . [place] Drug Monitoring Program Search Results: no issues identified
[2017-10-30] MEDS ORDERED: CEFTRIAXONE SOD INJ 2,000 MG in DEXTROSE 5% 50ML 50 ML IV SCH (16:00)
[2017-10-30] MEDS: ACETAMINOPHEN 325 MG TAB PO PRN (16:15)
[2017-10-30 17:43] VITALS: BP 130/87; PULSE 74; TEMP 36.5; O2SAT 99
--- NOTE | 2017-10-31 09:38 | Discharge Summary ---
Discharge Summary Date of Service Oct 30, 2017. Discharge Summary Admission Date: Oct 24, 2017 at 17:53 Discharge Date: Oct 30, 2017 Discharge Disposition: Home Principal Diagnosis: Septic arthritis right 3rd MCP joint Problems/Secondary Diagnoses: Right hand cellulitis Procedures: S/P tenosynovectomy 3rd extensor tendon right hand; irrigation and debridement of septic arthritis 3rd MCP joint, right hand; synovectomy or 3rd MCP right hand Consultations: Orthopedic surgery Medication Reconciliation New Medications: Ceftriaxone Sod (Rocephin) 1 Gm Inj 2 GM IV DAILY for 16 Days, #32 VIAL Oxycodone HCl (Oxycodone HCl) 5 Mg Tab 5 MG PO Q4H PRN for Pain, #30 TAB 0 Refills Continued Medications: Hydroxyzine Pamoate (Vistaril) 25 Mg Cap 25 MG PO DAILY, CAP Paroxetine HCl (Paroxetine) 10 Mg Tab 10 MG PO DAILY Discontinued Medications: Cephalexin Monohydrate (Keflex) 500 Mg Cap 500 MG PO QID for 10 Days, #40 CAP Sulfa/Trimethoprim (Bactrim Ds 800MG/160MG) Tab 1 TAB PO BID for 10 Days, #20 TAB Discharge Exam Patient doing well, pain controlled in right hand, no fevers. Orthopedic surgery signed off the case, can follow up in office. They recommend 3 weeks of IV antibiotics. Review of Systems: Constitutional: No fever, No chills, No sweats, No weight loss, No weakness , No fatigue, No problem reported Eyes: No worsening of vision, No eye pain, No redness, No discharge, No diplopia, No problem reported ENT: No hearing loss, No unusual epistaxis, No nasal symptoms, No sore throat, No tinnitus, No dental problems, No trouble swallowing, No problem reported Respiratory: No cough, No sputum, No wheezing, No shortness of breath, No dyspnea on exertion, No dyspnea at rest, No hemoptysis, No problem reported Cardiovascular: No chest pain, No orthopnea, No PND, No edema, No claudication, No palpitations, No problem reported Abdomen: No pain, No nausea, No vomiting, No diarrhea, No constipation, No GI bleeding, No problem reported Musculoskeletal: + joint pain (right hand, right 3rd MCP joint), + muscle pain (muscles of right hand), No swelling, No calf pain, No problem reported Genitourinary - Male: No hematuria, No dysuria, No urinary frequency, No urinary urgency Neurologic: No memory loss, No paralysis, No weakness, No numbness/tingling , No vertigo, No balance problems, No problem reported Psychiatric: No depression symptoms, No anhedonism, No anxiety, No insomnia , No substance abuse, No problem reported Endocrine: No fatigue, No excessive thirst, No excessive urination, No problem reported Hematologic / Lymphatic: No abnormal bleeding/bruising, No clotting problems , No swollen lymph nodes, No night sweats, No problem reported Integumentary: No rash, No itch, No new/changing skin lesions, No color change, No bleeding, No problem reported Physical Exam: General Appearance: WD/WN, no apparent distress Eyes: normal inspection, EOMI, sclerae normal ENT: normal ENT inspection, hearing grossly normal, pharynx normal Neck: supple, no adenopathy, no JVD, trachea midline Respiratory/Chest: chest non-tender, lungs clear, normal breath sounds, no respiratory distress, no accessory muscle use Cardiovascular: regular rate, rhythm, no edema, no gallop, no JVD, no murmur , normal peripheral pulses Abdomen / GI: normal bowel sounds, non tender, soft, no organomegaly Extremities: no calf tenderness, normal capillary refill, no pedal edema, pelvis stable, + pertinent finding (right hand wrapped, tender to palpation, can move fingers) 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 Cellulitis right hand with associated septic arthritis of 3rd MCP joint cultures grew Coagulase negative staph treated with Unasyn while admitted, afebrile, WBC normal, vitals stable change to Rocephin 2gm IV daily, treat for 3 weeks total (16 more days) follow up with orthopedic surgery in 10 days, Dr. Smart S/P tenosynovectomy 3rd extensor tendon right hand; irrigation and debridement of septic arthritis 3rd MCP joint, right hand; synovectomy or 3rd MCP right hand oxycodone PRN for pain relief Midline placed on 10/30 which can remain in place for 16 more days of Rocephin d/c back to [facility] Total Time Spent: Greater than 30 minutes This includes examination of the patient, discharge planning, medication reconciliation, and communication with other providers. Discharge Instructions Please refer to the electronic Patient Visit Report (Discharge Instructions) for additional information. Follow-Up Dr. Smart in 10 days Physician at [facility] Additional Copies To Eduardo Smart D.O.; [facility]
--- NOTE | 2017-11-28 19:09 | OPERATIVE REPORT ---
DATE OF OPERATION: 10/27/2017 PREOPERATIVE DIAGNOSES: 1. Tenosynovitis of the third extensor of the right hand. 2. Right third metacarpophalangeal joint septic arthritis. 3. Synovitis of the third metacarpophalangeal joint, right hand. POSTOPERATIVE DIAGNOSES: 1. Tenosynovitis of the third extensor of the right hand. 2. Right third metacarpophalangeal joint septic arthritis. 3. Synovitis of the third metacarpophalangeal joint, right hand. PROCEDURES: 1. Tinea synovectomy of the third extensor tendon, right hand. 2. Irrigation and debridement of septic arthritis third metacarpophalangeal joint, right hand. 3. Synovectomy of the third metacarpophalangeal joint, right hand. SURGEON: Dr. Smart. NEURO INTENSIVIST PHYSICIAN: None. ANESTHESIA: General LMA. SPECIMENS: Right third metacarpophalangeal joint culture and sensitivity, aerobic and anaerobic with Gram stain. DRAINS: Iodoform gauze x2. COMPLICATIONS: None. BLOOD LOSS: 3 mL. 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 States he sustained a fall and punched something with his hand. He developed pain, swelling, redness and he had a laceration. He was seen in the Emergency Department with worsening pain and swelling and was then admitted to the hospital for IV antibiotics. He had continued redness, swelling, and pain with local fluctuance. The examination was concerning for a "fight bite." The patient was admitted to the hospital and placed on IV antibiotics, failed to have significant improvement and he had exposure of the extensor of the third MCP and into the joint per clinical exam. He had worsening symptoms and scheduled for surgery as indicated. All potential risks, benefits, complications, alternatives, rehab, potential for incomplete relief of symptoms, need for further surgery, DVT, PE, , persistent pain, swelling, scarring, weakness, neurovascular injury, wound complications were discussed with the patient. The patient decided to proceed with the procedure as indicated. DESCRIPTION OF PROCEDURE: The patient was taken to the operative suite, placed supine on the operating table. I reviewed consent and identification of proper operative site. The patient was anesthetized, LMA was placed. Tourniquet was placed high on the right upper extremity over a cast padding. The right upper extremity was then sterilely prepped and draped in usual fashion, elevated, and tourniquet inflated to 250 mmHg. There was no exsanguination performed due to the nature of the infection. Next, a 15-blade scalpel was used to enlarge the area of laceration in a Russ incision pattern. The soft tissue flaps were then opened with a 15-blade scalpel through the subcutaneous tissue. Meticulous hemostasis was achieved with electrocautery. The extensor degroot was identified and the region of the laceration in the joint was clearly identified. This was irrigated with sterile normal saline with bacitracin followed by use of a rongeur to debride the tissue. There also noted to be hypertrophic tenosynovium and inflammatory reactive tissue consistent with tenosynovitis. Tenosynovectomy was then performed of the third extensor of the right hand with a rongeur. Next, exploration of the third metacarpophalangeal joint was performed. A freer elevator was placed in the joint, carefully retracted the head, and then a rongeur was then used to perform a synovectomy of the third metacarpophalangeal joint. Once this was completed, the joint and the incision was then copiously irrigated with sterile normal saline with bacitracin until clear. After this was completed, the top gloves and top sheet were changed followed by placement of two 1/2-inch iodoform gauze and drains, 1 proximal and 1 distal. Skin was then loosely closed with interrupted 4-0 nylon, and then a sterile compressive dressing was applied, overwrapped with Tyree wrap. The tourniquet was released. The patient was awakened and taken to recovery in stable condition. I attest to the content of the Intraoperative Record and any orders documented therein. Any exception s are noted below.
== END 2017-10-30 19:10 | disposition home or self-care (01) | DRG 982 ==
LOC: EDBD 16:31 → C.EDC 16:32 → C.MS2W 17:53 → ENRESERV 18:04
PROVIDERS: ADMIT Internal Medicine; ATTEND Internal Medicine
PROC: 0LB70ZZ Excision of Right Hand Tendon, Open Approach (ICD-10-PCS; principal; 2017-10-27 12:30)
PROC: 0LD70ZZ Extraction of Right Hand Tendon, Open Approach (ICD-10-PCS; principal; 2017-10-27 12:30)
DX: L03.113 Cellulitis of right upper limb (principal); M00.841 Arthritis due to other bacteria, right hand; M65.141 Other infective (teno)synovitis, right hand; S61.411A Laceration without foreign body of right hand, initial encounter; B95.61 Methicillin susceptible Staphylococcus aureus infection as the cause of diseases classified elsewhere; F17.200 Nicotine dependence, unspecified, uncomplicated; W45.8XXA Other foreign body or object entering through skin, initial encounter; Y92.148 Other place in prison as the place of occurrence of the external cause; Y93.B3 Activity, free weights